=== PATIENT | male | born 1960 | race Caucasian/White ===

== ENCOUNTER → 2024-07-20 | Outpatient (CLI) | payer OTHER, SELFPAY ==
--- NOTE | 2024-07-20 15:00 | XR_ITS ---
Examination: CT chest, without intravenous contrast. Sagittal and coronal 2-D reconstructions. Exam date and time: July 20, 2024 1558 hours Comparison February 05, 2024 INDICATIONS: Smoking history 50 years, pulmonary nodules including new 2 mm pulmonary nodule right upper lobe and 4 mm pleural-based pulmonary nodule left lower lobe on CT chest February 05, 2024 CTDI:vol (mGy) 8.28 DLP: (mGycm) 333 Technique: Multiple 3.0 mm axial sections of the chest to been obtained. Bone and lung density settings are obtained. Sagittal and coronal 2-D reconstructions have been obtained. Low dose protocols were performed. One or more of the following dose reduction techniques were used; automated exposure control, adjustment of the mA and/or KV according to patient size, use of iterative reconstruction technique. Findings: No thoracic aortic aneurysm dilatation Pulmonary artery segments are not enlarged. Mild calcification left anterior descending coronary artery No paratracheal tracheobronchial or bronchopulmonary adenopathy Stable pulmonary nodule right upper lobe Stable pulmonary nodule left lower lobe No new pulmonary nodules compared to the February 05, 2024 exam No interval pneumonia or pulmonary edema or pleural disease No visualized liver splenic lesion Contracted gallbladder No pancreatic or adrenal mass IMPRESSION: Stable pulmonary nodules compared with February 05, 2024, no new pulmonary nodules
== END | disposition home or self-care (01) ==
PROVIDERS: PCP Family Medicine; Referring Provider Internal Medicine; Visit Provider Internal Medicine
DX: R91.8 Other nonspecific abnormal finding of lung field (principal)
CPT/HCPCS: 71271

== ENCOUNTER → 2025-03-11 | Outpatient (CLI) | payer OTHER, SELFPAY ==
--- NOTE | 2025-03-11 14:00 | XR_ITS ---
EXAMINATION: Ultrasound abdominal TECHNIQUE: Grayscale sonographic images abdominal Date and time: March 11, 2025, 1402 hours INDICATIONS: Smoking history 50 years FINDINGS: Transverse dimension proximal aorta 2.0 cm mid aorta 2.0 cm distal aorta 1.9 cm right iliac 0.5 cm left iliac 0.7 cm IMPRESSION: Negative for abdominal aortic aneurysm
--- NOTE | 2025-03-11 14:30 | XR_ITS ---
Examination: CT chest, without intravenous contrast. Sagittal and coronal 2-D reconstructions. Exam date and time: March 11, 2025, 1427 hours INDICATIONS: Smoking history 50 years, encounter for screening for malignant neoplasm of the lung field CTDI:vol (mGy) 11.3 DLP: (mGycm) 431 Technique: Multiple 3.0 mm axial sections of the chest to been obtained. Bone and lung density settings are obtained. Sagittal and coronal 2-D reconstructions have been obtained. Low dose protocols were performed. One or more of the following dose reduction techniques were used; automated exposure control, adjustment of the mA and/or KV according to patient size, use of iterative reconstruction technique. Findings: No thoracic aortic aneurysm dilatation Pulmonary artery segments are not enlarged Moderate calcification left anterior descending coronary artery 5 mm pulmonary nodule right upper lobe image 102, this nodule is larger compared to the CT chest February 05, 2024 2 mm pulmonary nodule left upper lobe image 200 3 mm pleural-based pulmonary nodule medial left lower lobe image 272 No pneumonia or pulmonary edema COPD with areas of airspace destruction No visualized liver or splenic lesion No pancreatic mass Moderate osteopenia IMPRESSION: Noncalcified pulmonary nodules as above, with this study as baseline recommend continued 6-month follow-up CT chest without contrast
== END | disposition home or self-care (01) ==
LOC: CDIM 13:43
PROVIDERS: PCP Internal Medicine; Referring Provider Internal Medicine; Visit Provider Internal Medicine
DX: Z12.2 Encounter for screening for malignant neoplasm of respiratory organs (principal); R91.8 Other nonspecific abnormal finding of lung field; F17.200 Nicotine dependence, unspecified, uncomplicated
CPT/HCPCS: 71250; 76770